=== PATIENT | female | born 1930 | race Caucasian/White ===

== ENCOUNTER 2017-04-01 14:23 | Inpatient (IN) ==
[2017-04-01] MEDS ORDERED: ONDANSETRON 4 MG/2 ML VIAL IV PRN (16:12)
[2017-04-01] MEDS ORDERED: MORPHINE 2 MG/1 ML SYRINGE IV PRN (16:12)
[2017-04-01] MEDS ORDERED: MAGNESIUM SULF RIDER 4 GM in PREMIX 1 EACH IV PRN (16:12)
[2017-04-01] MEDS ORDERED: BISACODYL 5 MG TABLET PO PRN (16:12)
[2017-04-01] MEDS ORDERED: MAGNESIUM SULF RIDER 2 GM in PREMIX 1 EACH IV PRN (16:12)
[2017-04-01] MEDS ORDERED: ZALEPLON 5 MG CAPSULE PO PRN (16:12)
[2017-04-01] MEDS ORDERED: DOCUSATE SODIUM 100 MG CAPSULE PO PRN (16:12)
[2017-04-01] MEDS ORDERED: ACETAMINOPHEN 325 MG TABLET PO PRN (16:12)
[2017-04-01] MEDS ORDERED: SODIUM CHLORIDE 0.9% 1,000 ML IV SCH (16:30)
[2017-04-01] MEDS: PANTOPRAZOLE 40 MG TABLET PO SCH (18:13)
[2017-04-01 18:26] LABS: Basophils # 0.1 10*3/uL (0.0-0.2); Basophils % 1.2 % (0.0-0.8); Eosinophils # 0.2 10*3/uL (0.0-0.87); Eosinophils % 3.4 % (0.00-10.9); Hematocrit 35.8 VOL% (35.7-47.0); Hemoglobin 12.8 GM/DL (12.0-16.0); Immature Granulocytes % 0.2 %; Immature Granulocytes Absolute 0.01 #; Lymphocytes # 1.1 10*3/uL (1.4-4.0); Lymphocytes % 19.6 % (21.3-54.2); Lymphocytes % 21.3 % (21.3-54.2); Mean Corpuscular HGB Conc 35.8 GM/DL (32-36); Mean Corpuscular Hemoglobin 29 PG (27-34); Mean Corpuscular Volume 81.4 FL (87-102); Mean Corpuscular Volume 81.9 FL (87-102); Monocytes # 0.5 10*3/uL (0.11-0.8); Monocytes % 9.3 % (1.7-12.7); Monocytes % 9.5 % (1.7-12.7); Neutrophils # 3.2 10*3/uL (1.4-7.4); Neutrophils # 3.3 10*3/uL (1.4-7.4); Neutrophils % 66.3 % (38.7-73.9); Platelet Count 263 T/CUMM (130-400); Platelet Count 276 T/CUMM (130-400); Red Blood Count 4.37 MC/CUMM (3.8-5.5); Red Cell Distribution Width 12.2 % (9.3-17.3); Red Cell Distribution Width 12.3 % (9.3-17.3); White Blood Count 4.9 T/CUMM (4-12)
[2017-04-01 18:38] LABS: Calcium 9.6 MG/DL (8.5-10.1); Osmolality,Calculated 258.2 MOS/KG (273-304); Potassium 3.4 MMOL/L (3.5-5.1)
[2017-04-01 18:41] LABS: Albumin 4.3 G/DL (3.4-5.0); Bilirubin,Total 0.5 MG/DL (0.2-1.0); Calcium 9.5 MG/DL (8.5-10.1); Osmolality,Calculated 254.4 MOS/KG (273-304); Potassium 3.1 MMOL/L (3.5-5.1); Total Protein 8.2 G/DL (6.4-8.3)
[2017-04-01 18:42] LABS: INR 2.5
[2017-04-01 18:44] LABS: PT Patient Result 25.4 SECS
[2017-04-02] MEDS ORDERED: DIAZEPAM 5 MG TABLET PO ONE (05:00)
[2017-04-02] MEDS ORDERED: ceFAZolin 1,000 MG VIAL IRRIG ONE (05:00)
[2017-04-02] MEDS ORDERED: diphenhydrAMINE CAP 25 MG CAPSULE PO ONE (05:00)
[2017-04-02] MEDS ORDERED: ceFAZolin 1,000 MG in SYRINGE 1 EACH IV ONE (05:00)
[2017-04-02] MEDS: SODIUM CHLORIDE 0.45% 1,000 ML IV SCH ×2 (05:01→12:59)
[2017-04-02] MEDS ORDERED: POTASSIUM CHLORIDE 20 MEQ TABLET PO PRN (07:44)
[2017-04-02] MEDS: PANTOPRAZOLE 40 MG TABLET PO SCH (09:14)
[2017-04-02] MEDS ORDERED: POTASSIUM CHLORIDE 20 MEQ TABLET PO ONE (15:30)
[2017-04-02] MEDS ORDERED: CLORAZEPATE 3.75 MG TABLET PO PRN (16:59)
[2017-04-02] MEDS: FOLIC ACID 0.4 MG TABLET PO SCH (17:18)
[2017-04-02] MEDS: ASPIRIN EC 81 MG TABLET PO SCH (17:18)
[2017-04-02] MEDS: FUROSEMIDE 40 MG TABLET PO SCH (17:18)
[2017-04-02] MEDS: TELMISARTAN 40 MG TABLET PO SCH (17:18)
[2017-04-02] MEDS: traMADol 50 MG TABLET PO SCH (17:19)
[2017-04-02] MEDS: hydrALAZINE 20 MG/1 ML VIAL IV PRN (17:20)
[2017-04-02] MEDS: hydroCHLOROthiazide 25 MG TABLET PO SCH (17:25)
[2017-04-02] MEDS ORDERED: PHENIRAMINE BOTH EYES SCH (21:00)
[2017-04-02] MEDS ORDERED: NAPHAZOLINE HCL BOTH EYES SCH (21:00)
[2017-04-02] MEDS: traZODone 50 MG TABLET PO SCH (21:29)
[2017-04-03] MEDS: traMADol 50 MG TABLET PO SCH ×5 (02:29→20:05)
[2017-04-03 04:49] LABS: Basophils # 0.1 10*3/uL (0.0-0.2); Eosinophils # 0.2 10*3/uL (0.0-0.87); Eosinophils % 2.9 % (0.00-10.9); Hematocrit 34.2 VOL% (35.7-47.0); Hemoglobin 12.3 GM/DL (12.0-16.0); Immature Granulocytes % 0.4 %; Immature Granulocytes Absolute 0.02 #; Lymphocytes % 19.7 % (21.3-54.2); Mean Corpuscular Hemoglobin 29 PG (27-34); Mean Platelet Volume 8.8 FL (9.6-12.0); Monocytes # 0.6 10*3/uL (0.11-0.8); Monocytes % 10.7 % (1.7-12.7); Neutrophils # 3.3 10*3/uL (1.4-7.4); Neutrophils % 65.3 % (38.7-73.9); Platelet Count 251 T/CUMM (130-400); Red Blood Count 4.22 MC/CUMM (3.8-5.5); Red Cell Distribution Width 12.3 % (9.3-17.3); White Blood Count 5.1 T/CUMM (4-12)
[2017-04-03 04:54] LABS: INR 1.8; PT Patient Result 18.7 SECS
[2017-04-03 05:15] LABS: Calcium 9.2 MG/DL (8.5-10.1); Magnesium 1.8 MG/DL (1.8-2.4); Osmolality,Calculated 261.8 MOS/KG (273-304); Potassium 3.4 MMOL/L (3.5-5.1)
[2017-04-03] MEDS: LEVOTHYROXINE 137 MCG TABLET PO SCH (06:11)
[2017-04-03] MEDS: TELMISARTAN 40 MG TABLET PO SCH (08:05)
[2017-04-03] MEDS: PANTOPRAZOLE 40 MG TABLET PO SCH (08:05)
[2017-04-03] MEDS: FOLIC ACID 0.4 MG TABLET PO SCH (10:07)
[2017-04-03] MEDS: ASPIRIN EC 81 MG TABLET PO SCH (10:07)
[2017-04-03] MEDS: POTASSIUM CHLORIDE 20 MEQ TABLET PO SCH (10:08)
[2017-04-03] MEDS ORDERED: SODIUM CHLORIDE 0.9% 1,000 ML IV SCH (11:00)
[2017-04-03] MEDS ORDERED: ceFAZolin 1,000 MG VIAL IRRIG ONE (11:30)
[2017-04-03] MEDS ORDERED: ceFAZolin 1,000 MG in SYRINGE 1 EACH IV ONE (11:30)
[2017-04-03] MEDS ORDERED: diphenhydrAMINE CAP 25 MG CAPSULE PO ONE (11:30)
[2017-04-03] MEDS ORDERED: DIAZEPAM 5 MG TABLET PO ONE (11:30)
[2017-04-03] MEDS: NYSTATIN CREAM 15 GM TUBE TOP SCH (12:06)
[2017-04-03] MEDS: FLUTICASONE 50 MCG NASAL SPRAY 16 GM BOTTLE BOTH NARES SCH (12:29)
[2017-04-03] MEDS: hydroCHLOROthiazide 25 MG TABLET PO SCH (12:30)
[2017-04-03] MEDS: FUROSEMIDE 40 MG TABLET PO SCH (12:30)
[2017-04-03] MEDS ORDERED: ceFAZolin 1,000 MG VIAL ONE (13:43)
[2017-04-03] MEDS ORDERED: HEPARIN/NACL 0.9% 2 UNITS/ML 1,000 ML IV ONE ×2 (13:45→14:03)
[2017-04-03] MEDS ORDERED: LIDOCAINE 1% 20 ML VIAL ONE (14:04)
[2017-04-03] MEDS ORDERED: fentaNYL 100 MCG/2 ML VIAL ONE (15:08)
[2017-04-03] MEDS: hydrALAZINE 20 MG/1 ML VIAL IV PRN (20:05)
[2017-04-03] MEDS: traZODone 50 MG TABLET PO SCH (20:05)
[2017-04-04] MEDS: NYSTATIN CREAM 15 GM TUBE TOP SCH ×2 (00:54→09:38)
[2017-04-04] MEDS: traMADol 50 MG TABLET PO SCH ×3 (01:05→11:52)
[2017-04-04] MEDS: LEVOTHYROXINE 137 MCG TABLET PO SCH (05:56)
[2017-04-04] MEDS: hydrALAZINE 20 MG/1 ML VIAL IV PRN (05:56)
[2017-04-04 06:24] LABS: Basophils % 0.1 % (0.0-0.8); Hemoglobin 13.5 GM/DL (12.0-16.0); Immature Granulocytes % 0.6 %; Immature Granulocytes Absolute 0.05 #; Lymphocytes # 0.6 10*3/uL (1.4-4.0); Mean Corpuscular HGB Conc 35.5 GM/DL (32-36); Mean Corpuscular Hemoglobin 29 PG (27-34); Mean Corpuscular Volume 82.1 FL (87-102); Mean Platelet Volume 9.1 FL (9.6-12.0); Monocytes # 0.2 10*3/uL (0.11-0.8); Monocytes % 2.7 % (1.7-12.7); Neutrophils # 7.9 10*3/uL (1.4-7.4); Neutrophils % 89.6 % (38.7-73.9); Platelet Count 295 T/CUMM (130-400); Red Blood Count 4.63 MC/CUMM (3.8-5.5); Red Cell Distribution Width 12.4 % (9.3-17.3); White Blood Count 8.8 T/CUMM (4-12)
[2017-04-04 06:26] LABS: INR 1.3; PT Patient Result 13.7 SECS
[2017-04-04 06:51] LABS: Calcium 9.5 MG/DL (8.5-10.1); Osmolality,Calculated 265.7 MOS/KG (273-304); Potassium 5.1 MMOL/L (3.5-5.1)
[2017-04-04] MEDS ORDERED: CYANOCOBALAMIN 1000 MCG/1 ML VIAL SUBCUT SCH (08:45)
[2017-04-04] MEDS ORDERED: DILTIAZEM CD 240 MG CAPSULE PO SCH (09:00)
[2017-04-04] MEDS ORDERED: CARVEDILOL 6.25 MG TABLET PO SCH (09:00)
[2017-04-04] MEDS ORDERED: MONTELUKAST 10 MG TABLET PO SCH (09:00)
[2017-04-04] MEDS: FUROSEMIDE 40 MG TABLET PO SCH (09:37)
[2017-04-04] MEDS: hydroCHLOROthiazide 25 MG TABLET PO SCH (09:37)
[2017-04-04] MEDS: PANTOPRAZOLE 40 MG TABLET PO SCH (09:37)
[2017-04-04] MEDS: FOLIC ACID 0.4 MG TABLET PO SCH (09:37)
[2017-04-04] MEDS: TELMISARTAN 40 MG TABLET PO SCH (09:37)
[2017-04-04] MEDS: FLUTICASONE 50 MCG NASAL SPRAY 16 GM BOTTLE BOTH NARES SCH (09:38)
[2017-04-04] MEDS: ASPIRIN EC 81 MG TABLET PO SCH (09:38)
[2017-04-04] MEDS: POTASSIUM CHLORIDE 20 MEQ TABLET PO SCH (09:38)
[2017-04-04 13:57] VITALS: BP 158/75
[2017-04-04] MEDS ORDERED: WARFARIN 2.5 MG TABLET PO SCH (18:00)
[2017-04-06] MEDS ORDERED: WARFARIN 5 MG TABLET PO SCH (18:00)
== END 2017-04-04 14:15 | disposition home or self-care (01) | DRG 229 ==
LOC: INTOOBSV 16:12 → N.TELEN 17:05
PROVIDERS: ADMIT Internal Medicine Cardiovascular Disease; ATTEND Internal Medicine Cardiovascular Disease
PROC: CLMICRA (2017-04-03 13:15)